=== PATIENT | female | born 1955 | race Caucasian/White ===

== ENCOUNTER 2017-08-13 13:35 | Outpatient (CLI) | payer OTHER ==
--- NOTE | 2017-08-14 12:21 | Mammography Report ---
DIGITAL SCREENING MAMMOGRAM: 08/13/2017 CLINICAL INDICATION: A 62-year-old for screening. COMPARISON: 07/2016, 04/2015, 03/2014, 01/2013, 12/2011, 10/2010, 09/2009 TECHNIQUE: Routine CC and MLO projections were obtained of the breasts as well as bilateral laterall y exaggerated craniocaudal views. FINDINGS: The breasts again demonstrate heterogeneously dense fibroglandular parenchyma bilaterally. Punctate, typically benign calcifications are present. No suspicious masses, clustered microcalcif ications, or regions of architectural distortion are identified. IMPRESSION: BENIGN FINDINGS. RECOMMENDATION: Routine annual screening unless otherwise clinically indicated. BIRADS CATEGORY 2 - BENIGN FINDINGS. STANDARD QUALIFYING STATEMENTS 1. This examination was reviewed with the aid of Computer-Aided Detection (CAD). 2. A negative or benign imaging report should not delay biopsy if clinically suspicious findings are present. Consider surgical consultation if warranted. More than 5% of cancers are not identified by i maging. 3. Dense breasts may obscure an underlying neoplasm. JOB #: [id number] EXT JOB #:[id number]
== END 2017-08-13 13:36 | disposition home or self-care (01) ==
LOC: DI.N 13:35
PROVIDERS: ATTEND Family Medicine
DX: Z12.31 Encounter for screening mammogram for malignant neoplasm of breast (principal)
CPT/HCPCS: 77067

== ENCOUNTER 2017-09-08 12:24 | Outpatient (CLI) | payer OTHER ==
[2017-09-08 12:40] LABS: BASOPHILS % (AUTO) 0.6 %; EOSINOPHILS # (AUTO) 0.2 10^3/uL (0.0-0.7); EOSINOPHILS % (AUTO) 4.8 %; HCT - HEMATOCRIT 35.1 % (37.0-47.0); HGB - HEMOGLOBIN 12.3 g/dL (12.0-16.0); LYMPHOCYTES # (AUTO) 0.8 10^3/uL (1.5-3.5); LYMPHOCYTES % (AUTO) 18.7 %; MEAN CORPUSCULAR HEMOGLOBIN 31.2 pg (27.0-31.0); MEAN CORPUSCULAR HGB CONC 35.1 g/dL (32.0-36.0); MEAN CORPUSCULAR VOLUME 88.8 fL (81.0-99.0); MEAN PLATELET VOLUME 6.9 fL (7.9-10.8); MONOCYTES # (AUTO) 0.4 10^3/uL (0.0-1.0); MONOCYTES % (AUTO) 8.2 %; NEUTROPHILS # (AUTO) 2.9 10^3/uL (1.5-6.6); NEUTROPHILS % (AUTO) 67.7 %; RED BLOOD COUNT 3.96 10^6/uL (4.20-5.40); RED CELL DISTRIBUTION WIDTH 13.1 % (12.0-15.0); UNCORRECTED WHITE BLOOD COUNT 4.3 x10^3/uL; WHITE BLOOD COUNT 4.3 x10^3/uL (4.8-10.8)
[2017-09-08 12:50] LABS: ALBUMIN/GLOBULIN RATIO 0.9 (1.0-2.2); BILIRUBIN,TOTAL 0.6 mg/dL (0.2-1.0); CALCIUM 9.3 mg/dL (8.5-10.3); POTASSIUM 4.2 mmol/L (3.5-5.0); TOTAL PROTEIN 8.9 g/dL (6.7-8.2)
== END 2017-09-08 12:25 | disposition home or self-care (01) ==
LOC: LAB 12:24
PROVIDERS: ATTEND Family Medicine
DX: R10.9 Unspecified abdominal pain (principal); I10 Essential (primary) hypertension; K74.3 Primary biliary cirrhosis
CPT/HCPCS: 36415; 80053; 85025

== ENCOUNTER 2018-07-12 14:46 | Outpatient (CLI) | payer OTHER ==
[2018-07-12 18:46] LABS: BILIRUBIN,URINE NEGATIVE (NEGATIVE); GLUCOSE, URINE (UA) NEGATIVE (NEGATIVE); KETONES,URINE (UA) NEGATIVE (NEGATIVE); LEUKOCYTE ESTERASE, URINE NEGATIVE (NEGATIVE); NITRITE,URINE NEGATIVE (NEGATIVE); OCCULT BLOOD,URINE TRACE-LYSE (NEGATIVE); PROTEIN,URINE NEGATIVE (NEGATIVE); UROBILINOGEN,URINE 0.2 (NORMAL) E.U./dL (NORMAL)
[2018-07-12 19:13] LABS: CLARITY,URINE CLEAR (CLEAR)
[2018-07-12 19:14] LABS: BACTERIA,URINE None Seen /HPF (None Seen); RBC,URINE 0-5 /HPF (0-5); SQUAMOUS EPITHELIAL CELL,UR MOD Squamous (<= Few)
== END 2018-07-12 14:47 | disposition home or self-care (01) ==
LOC: LAB.WCP 14:46
PROVIDERS: ATTEND Family Medicine
DX: R10.9 Unspecified abdominal pain (principal)
CPT/HCPCS: 81001; 87086

== ENCOUNTER 2018-07-12 16:20 | Outpatient (CLI) | payer OTHER ==
[2018-07-12] MEDS ORDERED: IOPAMIDOL-300 100 ML VIAL IVP ONE (18:31)
[2018-07-12] MEDS ORDERED: IOPAMIDOL-300 50 ML VIAL PO ONE (18:31)
--- NOTE | 2018-07-12 18:56 | CT Report ---
Reason: FLANK PAIN, LEFT Procedure Date: 07/12/2018 Accession Number: [id number] / [id number] Procedure: CT - Abdomen/Pelvis W/WO CPT Code: FULL RESULT: EXAM: CT ABDOMEN WITHOUT AND WITH CONTRAST EXAM DATE: 07/12/2018 06:23 PM. HISTORY: Left flank pain. COMPARISON: None. TECHNIQUE: Routine helical CT imaging was performed through the abdomen before and after administration of IV contrast: 100 cc of Isovue-300. Enteric contrast: Yes. Reconstruction: Coronal and sagittal. In accordance with CT protocol optimization, one or more of the following dose reduction techniques were utilized for this exam: automated exposure control, adjustment of mA and/or KV based on patient size, or use of iterative reconstructive technique. FINDINGS: Lung Bases: Unremarkable. Liver: Perihepatic clips. Unremarkable liver with patent portal vein and hepatic vein flow. Gallbladder/Bile Ducts: Cholecystectomy. No dilated ducts. Spleen: Enlarged. Pancreas: Normal. No masses or ductal obstruction. Adrenal Glands: Normal. Kidneys: Normal. No masses or hydronephrosis. Peritoneal Cavity/Bowel: Normal. No free fluid, free air or adenopathy. No masses or acute inflammatory process. The appendix is well visualized and normal. Vasculature: No aneurysms or other significant abnormality. Bones: No significant abnormality. Other: None. IMPRESSION: 1. Splenomegaly. 2. Cholecystectomy. 3. Unremarkable kidneys and ureters. RADIA
== END 2018-07-12 16:21 | disposition home or self-care (01) ==
LOC: DI 16:20
PROVIDERS: ATTEND Family Medicine
DX: R10.9 Unspecified abdominal pain (principal); R16.1 Splenomegaly, not elsewhere classified; Z90.49 Acquired absence of other specified parts of digestive tract
CPT/HCPCS: 74178; 81001; Q9967

== ENCOUNTER 2018-08-14 08:55 | Outpatient (CLI) | payer OTHER ==
--- NOTE | 2018-08-16 08:52 | Mammography Report ---
Reason: SCREENING MAMMO Procedure Date: 08/14/2018 Accession Number: [id number] / [id number] Procedure: MGN - Screening Mammo Dig Bilat CPT Code: FULL RESULT: EXAM: Screening Mammo Dig Bilat DATE: 08/14/2018 9:13 AM CLINICAL HISTORY: 63-year-old female presents for screening. TECHNIQUE: Bilateral CC, laterally exaggerated CC, MLO views were obtained. COMPARISON: 08/13/2017 08/10/2016 05/07/2015 04/09/2014. FINDINGS: The breasts demonstrate heterogeneously dense fibroglandular parenchyma bilaterally. No suspicious masses, clustered microcalcifications, or regions of architectural distortion are identified. IMPRESSION: Negative examination RECOMMENDATION: Routine annual screening unless otherwise clinically indicated. BIRADS CATEGORY 1: Negative STANDARD QUALIFYING STATEMENTS: 1. This examination was reviewed with the aid of Computer-Aided Detection (CAD). 2. A negative or benign imaging report should not delay biopsy if clinically suspicious findings are present. Consider surgical consultation if warranted. More than 5% of cancers are not identified by imaging. 3. Dense breasts may obscure an underlying neoplasm. 4. This examination was reviewed without the aid of 3D breast imaging (tomosynthesis).
== END 2018-08-14 08:56 | disposition home or self-care (01) ==
LOC: DI.N 08:55
DX: Z12.31 Encounter for screening mammogram for malignant neoplasm of breast (principal)
CPT/HCPCS: 77067

== ENCOUNTER 2018-08-28 08:07 | Outpatient (CLI) | payer OTHER | END 2018-08-28 08:08 | disposition home or self-care (01) | LOC: LAB 08:07 | PROVIDERS: ATTEND Internal Medicine Gastroenterology | DX: Z94.4 Liver transplant status (principal); Z79.899 Other long term (current) drug therapy; Z48.298 Encounter for aftercare following other organ transplant | CPT/HCPCS: 36415; 80048; 80061; 80076; 80197; 82575; 82977; 83721; 83735; 84100; 84156; 85025; 85610 ==

== ENCOUNTER 2018-08-30 08:10 | Outpatient (CLI) | payer OTHER ==
[2018-08-30 08:14] LABS: BASOPHILS % (AUTO) 1.1 %; EOSINOPHILS # (AUTO) 0.3 10^3/uL (0.0-0.7); HGB - HEMOGLOBIN 10.8 g/dL (12.0-16.0); LYMPHOCYTES # (AUTO) 0.5 10^3/uL (1.5-3.5); LYMPHOCYTES % (AUTO) 14.9 %; MEAN CORPUSCULAR HEMOGLOBIN 31.4 pg (27.0-31.0); MEAN CORPUSCULAR HGB CONC 34.7 g/dL (32.0-36.0); MEAN CORPUSCULAR VOLUME 90.6 fL (81.0-99.0); MEAN PLATELET VOLUME 6.7 fL (7.9-10.8); MONOCYTES # (AUTO) 0.3 10^3/uL (0.0-1.0); MONOCYTES % (AUTO) 10.1 %; NEUTROPHILS # (AUTO) 2.1 10^3/uL (1.5-6.6); NEUTROPHILS % (AUTO) 64.9 %; PLT - PLATELET COUNT 91 10^3/uL (130-450); RED BLOOD COUNT 3.44 10^6/uL (4.20-5.40); RED CELL DISTRIBUTION WIDTH 13.3 % (12.0-15.0); WHITE BLOOD COUNT 3.3 x10^3/uL (4.8-10.8)
[2018-08-30 08:25] LABS: COLLECTION TIME,URINE 1440 min; TOTAL VOLUME,URINE 1325 mL
[2018-08-30 08:30] LABS: INR 1.4 (0.8-1.2); PT - PROTHROMBIN TIME 15.1 secs (9.9-12.6)
[2018-08-30 08:32] LABS: ALBUMIN 3.8 g/dL (3.2-5.5); ALKALINE PHOSPHATASE 73 IU/L (42-121); ALT ALANINE AMINOTRANSFERASE 34 IU/L (10-60); AST ASPARTATE AMINOTRANSFERASE 39 IU/L (10-42); BILIRUBIN,DIRECT 0.1 mg/dL (0.1-0.5); BILIRUBIN,TOTAL 0.5 mg/dL (0.2-1.0); BUN - BLOOD UREA NITROGEN 16 mg/dL (6-20); CARBON DIOXIDE - CO2 25 mmol/L (21-32); CHLORIDE 105 mmol/L (101-111); CHOL/HDL RATIO 3.1 (<4.4); CHOLESTEROL 173 mg/dL; CREATININE 0.9 mg/dL (0.4-1.0); GAMMA GLUTAMYL TRANSPEPTIDASE 90 IU/L (8-38); GFR - MDRD 64 (>89); GLUCOSE 100 mg/dL (70-100); HDL CHOLESTEROL 56 mg/dL; LDL CHOLESTEROL,CALCULATED 105 mg/dL; LDL/HDL RATIO 1.9 (<4.4); MAGNESIUM 1.8 mg/dL (1.7-2.8); PHOSPHORUS 3.3 mg/dL (2.5-4.6); SODIUM 135 mmol/L (135-145); VLDL CHOLESTEROL 12 mg/dL
[2018-08-30 08:40] LABS: CREATININE CLEARANCE,URINE 76 mL/min (66-111); CREATININE,URINE 69.5 mg/dL
[2018-08-30 08:43] LABS: TOTAL PROTEIN,URINE RANDOM < 6 mg/dL
--- NOTE | 2018-08-30 09:44 | XRAY Report ---
Reason: S/P LIVER TRANSPLANT ANNUAL FOLLOW UP Procedure Date: 08/30/2018 Accession Number: [id number] / [id number] Procedure: XR - Chest 2 View X-Ray CPT Code: 26332 FULL RESULT: EXAM: CHEST RADIOGRAPHY EXAM DATE: 08/30/2018 08:18 AM. CLINICAL HISTORY: Status post liver transplant; annual follow up. COMPARISON: 05/14/2009 10:35 PM CHEST W/ 09/07/2016 2:05 PM. TECHNIQUE: 2 views. FINDINGS: Lungs/Pleura: No focal opacities evident. No pleural effusion. No pneumothorax. High lung volumes with mildly flattened diaphragms, unchanged. Mediastinum: Heart and mediastinal contours are unremarkable. Other: None. IMPRESSION: No acute cardiopulmonary abnormality. RADIA
== END 2018-08-30 08:11 | disposition home or self-care (01) ==
LOC: DI 08:10
PROVIDERS: ATTEND Internal Medicine
DX: Z48.23 Encounter for aftercare following liver transplant (principal); Z94.4 Liver transplant status; Z79.899 Other long term (current) drug therapy; Z48.298 Encounter for aftercare following other organ transplant
CPT/HCPCS: 36415; 71046; 80048; 80061; 80076; 80197; 82575; 82977; 83721; 83735; 84100; 84156; 85025; 85610

== ENCOUNTER 2019-03-16 08:00 | Outpatient (CLI) | payer OTHER ==
[2019-03-16 12:06] LABS: H. PYLORIS ANTIGEN STL NEGATIVE (Negative)
== END 2019-03-16 23:59 | disposition home or self-care (01) ==
LOC: LAB.R 08:00
PROVIDERS: ATTEND Family Medicine
DX: R19.7 Diarrhea, unspecified (principal)
CPT/HCPCS: 81599; 83630; 87045; 87046; 87177; 87209; 87329; 87338; 87493

== ENCOUNTER → 2019-03-18 | Outpatient (CLI) | payer OTHER | LOC: LAB.R 08:00 | PROVIDERS: ATTEND Family Medicine | DX: R19.7 Diarrhea, unspecified (principal) | CPT/HCPCS: 82270; 82274 ==

== ENCOUNTER 2019-08-18 10:09 | Outpatient (CLI) | payer OTHER ==
--- NOTE | 2019-08-18 12:31 | Mammography Report ---
Reason: ROUTINE MAMMO Procedure Date: 08/18/2019 Accession Number: [id number] / [id number] Procedure: MGN - Screening Mammo Dig Bilat CPT Code: Final Report FULL RESULT: EXAM: Screening Mammo Dig Bilat DATE: 08/18/2019 10:32 AM CLINICAL HISTORY: The patient is a 64 year-old asymptomatic female. No reported personal nor family history of breast cancer. TECHNIQUE: (B) - Bilateral CC and MLO views were obtained. COMPARISON: 08/14/2018, 08/13/2017, 08/10/2016, 05/07/2015, 04/09/2014 PARENCHYMAL PATTERN: (D) - The breasts demonstrate heterogeneously dense fibroglandular parenchyma bilaterally.This limits mammographic sensitivity. FINDINGS: The pattern of asymmetry is stable given positional variation. There are no suspicious masses, calcifications or areas of distortion. IMPRESSION: Negative examination. BI-RADS category 1. RECOMMENDATION: (ANNUAL) - Recommend routine annual screening mammography. BI-RADS CATEGORY: STANDARD QUALIFYING STATEMENTS: 1. This examination was not reviewed with the aid of Computer-Aided Detection (CAD). 2. A negative or benign imaging report should not preclude biopsy if clinically suspicious findings are present. 3. Dense breasts may obscure an underlying neoplasm.
== END 2019-08-18 10:10 | disposition home or self-care (01) ==
LOC: DI.N 10:09
DX: Z12.31 Encounter for screening mammogram for malignant neoplasm of breast (principal)
CPT/HCPCS: 77067

== ENCOUNTER 2019-08-19 08:07 | Outpatient (CLI) | payer OTHER ==
[2019-08-19 08:32] LABS: INR 1.3 (0.8-1.2); PT - PROTHROMBIN TIME 15.1 secs (9.9-12.6)
[2019-08-19 08:47] LABS: ALKALINE PHOSPHATASE 76 IU/L (42-121); ALT ALANINE AMINOTRANSFERASE 36 IU/L (10-60); AST ASPARTATE AMINOTRANSFERASE 40 IU/L (10-42); BILIRUBIN,DIRECT 0.1 mg/dL (0.1-0.5); BILIRUBIN,TOTAL 0.8 mg/dL (0.2-1.0); BUN - BLOOD UREA NITROGEN 18 mg/dL (6-20); CALCIUM 9.1 mg/dL (8.5-10.3); CARBON DIOXIDE - CO2 25 mmol/L (21-32); CHLORIDE 103 mmol/L (101-111); CHOL/HDL RATIO 2.9 (<4.4); CHOLESTEROL 167 mg/dL; CREATININE 1.1 mg/dL (0.4-1.0); GAMMA GLUTAMYL TRANSPEPTIDASE 102 IU/L (8-38); GFR - MDRD 50 (>89); GLUCOSE 104 mg/dL (70-100); HDL CHOLESTEROL 57 mg/dL; LDL CHOLESTEROL,CALCULATED 98 mg/dL; LDL/HDL RATIO 1.7 (<4.4); MAGNESIUM 1.8 mg/dL (1.7-2.8); PHOSPHORUS 3.7 mg/dL (2.5-4.6); SODIUM 137 mmol/L (135-145); VLDL CHOLESTEROL 12 mg/dL
[2019-08-19 08:54] LABS: BASOPHILS % (AUTO) 0.6 %; EOSINOPHILS # (AUTO) 0.2 10^3/uL (0.0-0.7); EOSINOPHILS % (AUTO) 6.8 %; HGB - HEMOGLOBIN 10.5 g/dL (12.0-16.0); LYMPHOCYTES # (AUTO) 0.6 10^3/uL (1.5-3.5); LYMPHOCYTES % (AUTO) 19.7 %; MEAN CORPUSCULAR HEMOGLOBIN 30.3 pg (27.0-31.0); MEAN CORPUSCULAR HGB CONC 32.7 g/dL (32.0-36.0); MEAN CORPUSCULAR VOLUME 92.8 fL (81.0-99.0); MONOCYTES # (AUTO) 0.3 10^3/uL (0.0-1.0); MONOCYTES % (AUTO) 9.4 %; NEUTROPHILS % (AUTO) 63.2 %; PLT - PLATELET COUNT 70 10^3/uL (130-450); RED BLOOD COUNT 3.46 10^6/uL (4.20-5.40); RED CELL DISTRIBUTION WIDTH 13.2 % (12.0-15.0); WHITE BLOOD COUNT 3.1 x10^3/uL (4.8-10.8)
[2019-08-19 09:27] LABS: CREATININE,URINE 95.4 mg/dL; TOTAL VOLUME 24HRS,URINE 1000 mL
[2019-08-19 10:36] LABS: TOTAL PROTEIN,URINE TIMED < 6 mg/dL
[2019-08-19 13:03] LABS: CREATININE CLEARANCE,URINE 171 mL/min (66-111)
[2019-08-19 13:30] LABS: TOTAL VOLUME,URINE 1000 mL
== END 2019-08-19 08:08 | disposition home or self-care (01) ==
LOC: LAB 08:07
PROVIDERS: ATTEND Internal Medicine Gastroenterology
DX: Z94.4 Liver transplant status (principal); Z79.899 Other long term (current) drug therapy; Z48.298 Encounter for aftercare following other organ transplant
CPT/HCPCS: 36415; 80048; 80061; 80076; 80197; 82575; 82977; 83721; 83735; 84100; 84156; 85025; 85610

== ENCOUNTER 2020-05-13 11:33 | Outpatient (CLI) | payer OTHER | END 2020-05-13 23:59 | disposition home or self-care (01) | LOC: LAB.R 11:33 | PROVIDERS: ATTEND Nurse Practitioner Family | DX: R31.9 Hematuria, unspecified (principal) | CPT/HCPCS: 87086 ==

== ENCOUNTER 2020-06-11 09:20 | Outpatient (CLI) | payer OTHER ==
--- NOTE | 2020-06-11 16:03 | XRAY Report ---
PROCEDURE: Ankle 3 View LT INDICATIONS: LEFT DISTAL FIBULA FRACTURE TECHNIQUE: 3 views of the ankle were acquired. COMPARISON: [facility] ankle x-ray 05/31/2020. FINDINGS: Bones: Several cortical step-off with associated linear lucency redemonstrated within the lateral mal leolus compatible with a nondisplaced fracture. Fracture line is less distinct compared to the prior study. No other fracture or dislocation. Ankle mortise is normally aligned. No suspicious bony lesio ns. Soft tissues: There is decreased soft tissue swelling over the lateral malleolus. No tibiotalar join t effusion. Achilles tendon appears normal. IMPRESSION: 1. Healing nondisplaced fracture of the lateral malleolus. Reviewed by: Obi De La Cruz MD on 06/11/2020 4:01 PM PDT Approved by: Obi De La Cruz MD on 06/11/2020 4:01 PM PDT Station ID: [id number]
--- NOTE | 2020-06-11 16:05 | XRAY Report ---
PROCEDURE: Foot 3 View LT INDICATIONS: LEFT FOOT PAIN TECHNIQUE: 3 views of the foot were acquired. COMPARISON: Concurrent x-ray of the ankle. [facility] foot x-ray 05/31/2020. FINDINGS: Bones: No fracture or dislocation within the foot. Nondisplaced fracture of the lateral malleolus is not well visualized on the current study. There is mild degeneration of the first metatarsophalangeal joint. Soft tissues: Mild soft tissue swelling is demonstrated medial to the first metatarsal head. IMPRESSION: 1. No fracture or dislocation in the foot. 2. Nondisplaced fracture of the lateral malleolus not well visualized on the current study. Reviewed by: Obi De La Cruz MD on 06/11/2020 4:04 PM PDT Approved by: Obi De La Cruz MD on 06/11/2020 4:04 PM PDT Station ID: [id number]
--- NOTE | 2020-06-11 16:33 | XRAY Report ---
PROCEDURE: Tib/Fib LT INDICATIONS: LEFT LEG PAIN TECHNIQUE: 2 views of the tibia and fibula were acquired. COMPARISON: [facility] Left ankle x-ray 05/31/2020. Concurrent x-ray of the left ankle. FINDINGS: Bones: No fractures or dislocations in the proximal tibia or fibula. Nondisplaced fracture of the d istal fibula is not well visualized on the current study. Soft tissues: No suspicious soft tissue calcifications or masses. IMPRESSION: 1. No fracture or dislocation in the proximal tibia or fibula. Reviewed by: Obi De La Cruz MD on 06/11/2020 4:31 PM PDT Approved by: Obi De La Cruz MD on 06/11/2020 4:31 PM PDT Station ID: [id number]
== END 2020-06-11 09:21 | disposition home or self-care (01) ==
LOC: DI.WCP 09:20
PROVIDERS: ATTEND Physician Assistant
DX: S82.65XA Nondisplaced fracture of lateral malleolus of left fibula, initial encounter for closed fracture (principal)

== ENCOUNTER 2020-07-24 00:12 | Outpatient (CLI) | payer OTHER | END 2020-07-24 00:13 | disposition short-term general hospital (02) | LOC: EMS 00:12 | PROVIDERS: ATTEND Surgery | DX: R42 Dizziness and giddiness (principal); R10.9 Unspecified abdominal pain; R11.2 Nausea with vomiting, unspecified | CPT/HCPCS: A0425; A0427 ==

== ENCOUNTER 2020-08-04 20:40 | Outpatient (CLI) | payer OTHER | END 2020-08-04 23:59 | disposition home or self-care (01) | LOC: LAB.R 20:40 | PROVIDERS: ATTEND Family Medicine | DX: R19.7 Diarrhea, unspecified (principal) | CPT/HCPCS: 81599; 83993; 87045; 87046; 87177; 87209; 87427; 87493 ==

== ENCOUNTER 2020-09-02 09:06 | Outpatient (CLI) | payer OTHER ==
--- NOTE | 2020-09-02 09:41 | XRAY Report ---
PROCEDURE: Foot 3 View LT INDICATIONS: FRACTURE OF LT GREAT TOE TECHNIQUE: 3 views of the foot were acquired. COMPARISON: None FINDINGS: Bones: No fractures or dislocations. No suspicious bony lesions. Soft tissues: No tibiotalar joint effusion. Achilles tendon appears normal. IMPRESSION: No fracture of the great toe is identified. There are mild degenerative changes of the le ft metatarsophalangeal joint. Reviewed by: Kirill Hartman on 09/02/2020 9:40 AM [facility] Approved by: Kirill Hartman on 09/02/2020 9:40 AM [facility] Station ID: [id number]
--- NOTE | 2020-09-02 09:44 | XRAY Report ---
PROCEDURE: Ankle 3 View LT INDICATIONS: LT ANKLE ORTHO FOLLOW UP TECHNIQUE: 3 views of the ankle were acquired. COMPARISON: None FINDINGS: Bones: No acute fractures or dislocations. Ankle mortise is normally aligned. No suspicious bony l esions. Soft tissues: No tibiotalar joint effusion. Achilles tendon appears normal. IMPRESSION: Healed fracture of the lateral malleolus is no longer visible. Reviewed by: Kirill Hartman on 09/02/2020 9:[address] [facility] Approved by: Kirill Hartman on 09/02/2020 9:[address] [facility] Station ID: [id number]
== END 2020-09-02 23:59 | disposition home or self-care (01) ==
LOC: DI.N 09:06
PROVIDERS: ATTEND Physician Assistant
DX: M19.072 Primary osteoarthritis, left ankle and foot (principal); S92.422S Displaced fracture of distal phalanx of left great toe, sequela

== ENCOUNTER 2020-09-14 08:50 | Outpatient (CLI) | payer OTHER | END 2020-09-14 08:51 | disposition home or self-care (01) | LOC: DI 08:50 | PROVIDERS: ATTEND Family Medicine | DX: R00.2 Palpitations (principal); I34.0 Nonrheumatic mitral (valve) insufficiency | CPT/HCPCS: 93306 ==

== ENCOUNTER 2020-09-15 09:22 | Outpatient (CLI) | payer OTHER ==
--- NOTE | 2020-09-16 11:45 | Mammography Report ---
BILATERAL DIGITAL SCREENING MAMMOGRAM 3D/2D: 09/15/2020 CLINICAL: Routine screening. Comparison is made to exams dated: 08/18/2019 mammogram, 08/14/2018 mammogram, and 08/13/2017 mammog [facility]. The tissue of both breasts is heterogeneously dense. This may lo wer the sensitivity of mammography. There is a developing new asymmetry in the left breast posterior depth central to the nipple seen on the craniocaudal view only. There is architectural distortion associated with the asymmetry. No other significant masses, calcifications, or other findings are seen in either breast. IMPRESSION: INCOMPLETE: NEEDS ADDITIONAL IMAGING EVALUATION The developing new asymmetry in the left breast is indeterminate. Additional views with possible ult rasound are recommended. This exam was interpreted at Station ID: [id number]. NOTE: For mammograms, a report in lay terms will be sent to the patient. Approximately 15% of breast malignancies will not be visualized mammographically. In the management of a palpable breast mass, a negative mammogram must not discourage biopsy of a clinically suspicious lesion. Electronically Signed By: Yasemin lopez/greg:09/15/2020 18:11:07 ACR BI-RADS Category 0: Incomplete 3340F PARENCHYMAL PATTERN: (D) - The breast(s) demonstrate(s) heterogeneously dense fibroglandular naima hernandez. BI-RADS CATEGORY: (0) - 0 Mammo and [place] [id number] Immediate follow-up LATERALITY: (B)
== END 2020-09-15 09:23 | disposition home or self-care (01) ==
LOC: DI.N 09:22
DX: Z12.31 Encounter for screening mammogram for malignant neoplasm of breast (principal); N64.89 Other specified disorders of breast
CPT/HCPCS: 77067

== ENCOUNTER 2020-09-27 07:59 | Outpatient (CLI) | payer OTHER ==
[2020-09-27 08:30] LABS: EOSINOPHILS # (AUTO) 0.2 10^3/uL (0.0-0.7); EOSINOPHILS % (AUTO) 7.9 %; HGB - HEMOGLOBIN 10.8 g/dL (12.0-16.0); LYMPHOCYTES # (AUTO) 0.4 10^3/uL (1.5-3.5); LYMPHOCYTES % (AUTO) 13.5 %; MEAN CORPUSCULAR HEMOGLOBIN 30.1 pg (27.0-31.0); MEAN CORPUSCULAR HGB CONC 33.2 g/dL (32.0-36.0); MEAN CORPUSCULAR VOLUME 90.5 fL (81.0-99.0); MEAN PLATELET VOLUME 9.6 fL (7.9-10.8); MONOCYTES # (AUTO) 0.2 10^3/uL (0.0-1.0); MONOCYTES % (AUTO) 7.6 %; NEUTROPHILS # (AUTO) 2.1 10^3/uL (1.5-6.6); PLT - PLATELET COUNT 65 10^3/uL (130-450); RED BLOOD COUNT 3.59 10^6/uL (4.20-5.40); RED CELL DISTRIBUTION WIDTH 14.3 % (12.0-15.0)
[2020-09-27 08:34] LABS: INR 1.5 (0.8-1.2); PT - PROTHROMBIN TIME 16.7 secs (9.9-12.6)
[2020-09-27 08:47] LABS: ALKALINE PHOSPHATASE 81 IU/L (42-121); ALT ALANINE AMINOTRANSFERASE 19 IU/L (10-60); AST ASPARTATE AMINOTRANSFERASE 31 IU/L (10-42); BILIRUBIN,DIRECT 0.1 mg/dL (0.1-0.5); BILIRUBIN,TOTAL 0.9 mg/dL (0.2-1.0); BUN - BLOOD UREA NITROGEN 15 mg/dL (6-20); CALCIUM 9.5 mg/dL (8.5-10.3); CARBON DIOXIDE - CO2 24 mmol/L (21-32); CHLORIDE 102 mmol/L (101-111); CHOLESTEROL 139 mg/dL; GAMMA GLUTAMYL TRANSPEPTIDASE 55 IU/L (8-38); GLUCOSE 110 mg/dL (70-100); HDL CHOLESTEROL 46 mg/dL; LDL CHOLESTEROL,CALCULATED 81 mg/dL; LDL/HDL RATIO 1.8 (<4.4); MAGNESIUM 1.9 mg/dL (1.7-2.8); PHOSPHORUS 3.9 mg/dL (2.5-4.6); SODIUM 138 mmol/L (135-145); TOTAL PROTEIN 8.1 g/dL (6.7-8.2); VLDL CHOLESTEROL 12 mg/dL
[2020-09-27 12:11] LABS: TOTAL VOLUME,URINE 1400 mL
[2020-09-27 12:22] LABS: CREATININE,URINE 58.8 mg/dL; TOTAL VOLUME 24HRS,URINE 1400 mL
[2020-09-27 12:59] LABS: CREATININE CLEARANCE,URINE 61 mL/min (66-111)
[2020-09-27 13:03] LABS: TOTAL PROTEIN,URINE TIMED < 6 mg/dL
== END 2020-09-27 08:00 | disposition home or self-care (01) ==
LOC: LAB 07:59
PROVIDERS: ATTEND Internal Medicine Gastroenterology
DX: Z94.4 Liver transplant status (principal); Z48.298 Encounter for aftercare following other organ transplant; Z79.899 Other long term (current) drug therapy
CPT/HCPCS: 36415; 80048; 80061; 80076; 80197; 82575; 82977; 83721; 83735; 84100; 84156; 85025; 85610

== ENCOUNTER 2020-10-06 13:59 | Outpatient (CLI) | payer OTHER ==
[2020-10-06 18:06] LABS: BASOPHILS % (AUTO) 0.7 %; EOSINOPHILS # (AUTO) 0.2 10^3/uL (0.0-0.7); EOSINOPHILS % (AUTO) 6.4 %; HGB - HEMOGLOBIN 10.1 g/dL (12.0-16.0); LYMPHOCYTES # (AUTO) 0.5 10^3/uL (1.5-3.5); LYMPHOCYTES % (AUTO) 18.1 %; MEAN CORPUSCULAR HEMOGLOBIN 31.6 pg (27.0-31.0); MEAN CORPUSCULAR HGB CONC 33.9 g/dL (32.0-36.0); MEAN CORPUSCULAR VOLUME 93.1 fL (81.0-99.0); MEAN PLATELET VOLUME 9.7 fL (7.9-10.8); MONOCYTES # (AUTO) 0.2 10^3/uL (0.0-1.0); MONOCYTES % (AUTO) 8.5 %; NEUTROPHILS # (AUTO) 1.9 10^3/uL (1.5-6.6); NEUTROPHILS % (AUTO) 66.3 %; PLT - PLATELET COUNT 81 10^3/uL (130-450); RED CELL DISTRIBUTION WIDTH 14.6 % (12.0-15.0); WHITE BLOOD COUNT 2.8 x10^3/uL (4.8-10.8)
[2020-10-06 18:30] LABS: ALBUMIN 4.1 g/dL (3.2-5.5); BILIRUBIN,TOTAL 0.8 mg/dL (0.2-1.0); CALCIUM 9.5 mg/dL (8.5-10.3); CREATININE 1.1 mg/dL (0.4-1.0); TOTAL PROTEIN 8.1 g/dL (6.7-8.2)
[2020-10-06 19:03] LABS: PLATELET ESTIMATE, MANUAL DECREASED (<130,000) (NORMAL); PLATELET MORPHOLOGY NORMAL APPEARANCE (NORMAL); RBC MORPHOLOGY (MULTIPLE) 1+ ANISOCYTOSIS (NORMAL)
== END 2020-10-06 23:59 | disposition home or self-care (01) ==
LOC: LAB.WCP 13:59
PROVIDERS: ATTEND Family Medicine
DX: K92.2 Gastrointestinal hemorrhage, unspecified (principal)
CPT/HCPCS: 36415; 80053; 82728; 83540; 84466; 85025

== ENCOUNTER 2020-10-25 10:52 | Outpatient (CLI) | payer OTHER ==
--- NOTE | 2020-10-26 08:27 | Mammography Report ---
UNILATERAL LEFT DIGITAL DIAGNOSTIC MAMMOGRAM 3D/2D: 10/25/2020 CLINICAL: Patient returns today to evaluate a focal asymmetry in the left breast. Comparison is made to exams dated: 09/15/2020 mammogram, 08/18/2019 mammogram, 08/14/2018 mammogram, 08/13/2017 mammogram, and 08/10/2016 mammogram - [facility]. The tissue of left b reast is heterogeneously dense. This may lower the sensitivity of mammography. There is an oval asymmetry with a microlobulated margin in the left breast posterior depth central to the nipple seen on the craniocaudal view only. This is less prominent. This lesion appears to loc matt to the superior breast on prior tomosynthesis images, but is not definitely seen on the prior M LO or today's LM view. No other significant masses or calcifications are seen in the breast. IMPRESSION: INCOMPLETE: NEEDS ADDITIONAL IMAGING EVALUATION The oval asymmetry in the left breast is indeterminate. An ultrasound is recommended. Targeted ultr asound is recommended for further evaluation, which will be performed on the same day immediately fol lowing this exam. This exam was interpreted at Station ID: [id number]. NOTE: For mammograms, a report in lay terms will be sent to the patient. Approximately 15% of breast malignancies will not be visualized mammographically. In the management of a palpable breast mass, a negative mammogram must not discourage biopsy of a clinically suspicious lesion. Electronically Signed By: Kaleb rosas/greg:10/25/2020 13:27:27 ACR BI-RADS Category 0: Incomplete 3340F PARENCHYMAL PATTERN: (D) - The breast(s) demonstrate(s) heterogeneously dense fibroglandular naima hernandez. BI-RADS CATEGORY: (0) - 0 Ultrasound [id number] Immediate follow-up LATERALITY: (L)
--- NOTE | 2020-10-26 08:27 | Ultrasound Report ---
LIMITED ULTRASOUND OF LEFT BREAST: 10/25/2020 CLINICAL: Patient returns for additional imaging over a suspected mass in the left breast. Comparison is made to exams dated: 10/25/2020 mammogram, 09/15/2020 mammogram, 08/18/2019 mammogram, 10/14/2017 mammogram, and 08/13/2017 mammogram - [facility]. Color flow ultrasound of the left breast 2 o'clock region was performed. Martines scale images of the r eal-time examination were reviewed. There is a 0.7 cm x 0.8 cm x 0.2 cm oval mass with a circumscribed margin in the left breast at 2 o'c lock posterior depth 4 cm from the nipple. This oval mass is hypoechoic. There also is a 0.4 cm x 0.4 cm x 0.4 cm cluster of oval cysts with a septated internal wall in the l eft breast at 2 o'clock middle depth 3 cm from the nipple. This cluster of oval cysts is hypoechoic. IMPRESSION: PROBABLY BENIGN The 0.7 cm x 0.8 cm x 0.2 cm oval mass in the left breast at 2 o'clock posterior depth has a differen tial diagnosis of a complicated cyst or a solid mass and is probably benign. The 0.4 cm x 0.4 cm x 0.4 cm cluster of oval cysts in the left breast at 2 o'clock middle depth is co nsistent with complicated cysts and is probably benign. A follow-up left mammogram and an ultrasound in 6 months is recommended to demonstrate stability. This exam was interpreted at Station ID: [id number]. Electronically Signed By: Kaleb rosas/greg:10/25/2020 13:30:32 Ultrasound BI-RADS: 3 Probably benign BI-RADS CATEGORY: (3) - 3 Mammo and [place] [id number] 6 month follow-up LATERALITY: (L)
== END 2020-10-25 10:53 | disposition home or self-care (01) ==
LOC: DI 10:52
PROVIDERS: ATTEND Family Medicine
DX: R92.8 Other abnormal and inconclusive findings on diagnostic imaging of breast (principal); N63.21 Unspecified lump in the left breast, upper outer quadrant; N60.12 Diffuse cystic mastopathy of left breast

== ENCOUNTER 2020-12-27 10:40 | Outpatient (CLI) | payer OTHER | END 2020-12-27 23:59 | disposition home or self-care (01) | LOC: LAB.N 10:40 | PROVIDERS: ATTEND Nurse Practitioner | DX: R50.9 Fever, unspecified (principal); Z20.822 Contact with and (suspected) exposure to COVID-19 ==

== ENCOUNTER 2021-07-21 09:54 | Outpatient (CLI) | payer OTHER ==
--- NOTE | 2021-07-22 09:11 | Mammography Report ---
BILATERAL DIGITAL DIAGNOSTIC MAMMOGRAM 3D/2D: 07/21/2021 CLINICAL: Short term follow up of the left breast, due for bilateral imaging. Comparison is made to exams dated: 10/25/2020 ultrasound, 10/25/2020 mammogram, 09/15/2020 mammogram, mammogram, 08/14/2018 mammogram, and 08/13/2017 mammogram - [facility]. T he tissue of both breasts is heterogeneously dense. This may lower the sensitivity of mammography. There is an asymmetry in the left breast posterior depth central to the nipple seen on the craniocaud al view only. This is less prominent. No other significant masses, calcifications, or other findings are seen in either breast. IMPRESSION: INCOMPLETE: NEEDS ADDITIONAL IMAGING EVALUATION The asymmetry in the left breast is indeterminate. A targeted ultrasound is recommended and will immediately follow. This exam was interpreted at Station ID: [id number]. NOTE: For mammograms, a report in lay terms will be sent to the patient. Approximately 15% of breast malignancies will not be visualized mammographically. In the management of a palpable breast mass, a negative mammogram must not discourage biopsy of a clinically suspicious lesion. Electronically Signed By: Tj Gusman M.D. slc/:07/21/2021 10:35:31 ACR BI-RADS Category 0: Incomplete 3340F PARENCHYMAL PATTERN: (D) - The breast(s) demonstrate(s) heterogeneously dense fibroglandular parmatthewy david. BI-RADS CATEGORY: (0) - 0 Ultrasound [id number] Immediate follow-up LATERALITY: (B)
--- NOTE | 2021-07-22 09:11 | Ultrasound Report ---
LIMITED ULTRASOUND OF LEFT BREAST: 07/21/2021 CLINICAL: Patient returns for a 6 month follow up of the left breast. Comparison is made to exams dated: 07/21/2021 mammogram, 10/25/2020 ultrasound, 10/25/2020 mammogram, mammogram, 08/18/2019 mammogram, and 08/14/2018 mammogram - [facility]. Color flow and real-time ultrasound of the left breast 2 o'clock region were performed. Martines scale i mages of the real-time examination were reviewed. There is a stable 0.8 cm x 0.7 cm x 0.2 cm wider than tall oval mass with a circumscribed margin in t he left breast at 2 o'clock posterior depth 4 cm from the nipple. This oval mass is hypoechoic. Col or flow imaging demonstrates that there is no vascularity present. This may correspond with the asymm etry seen on mammogram. There also is a 0.3 cm x 0.3 cm x 0.3 cm cluster of oval cysts with a septated internal wall in the l eft breast at 2 o'clock middle depth 3 cm from the nipple. This cluster of oval cysts is hypoechoic. These abnormalities are decreased in size. Color flow imaging demonstrates that there is no vascul arity present. IMPRESSION: PROBABLY BENIGN Stable 0.8 cm mass in the left breast at 2 o'clock posterior depth has a differential diagnosis of a complicated cyst or a fibroadenoma and is probably benign. The 0.3 cm cluster of oval cysts in the left breast at 2 o'clock middle depth is probably benign. A follow-up ultrasound in 6 months is recommended to demonstrate stability. This exam was interpreted at Station ID: [id number]. Electronically Signed By: Tj Gusman M.D. slc/:07/21/2021 11:29:55 Ultrasound BI-RADS: 3 Probably benign BI-RADS CATEGORY: (3) - 3 Ultrasound [id number] 6 month follow-up LATERALITY: (B)
== END 2021-07-21 09:55 | disposition home or self-care (01) ==
LOC: DI 09:54
PROVIDERS: ATTEND Surgery
DX: R92.8 Other abnormal and inconclusive findings on diagnostic imaging of breast (principal); N63.21 Unspecified lump in the left breast, upper outer quadrant; N60.02 Solitary cyst of left breast

== ENCOUNTER 2021-08-04 11:13 | Outpatient (CLI) | payer OTHER ==
--- NOTE | 2021-08-04 12:38 | XRAY Report ---
PROCEDURE: Shoulder 2 View BILAT INDICATIONS: BILATERAL SHOULDER PAIN TECHNIQUE: 2 views of the bilateral shoulders were acquired. COMPARISON: None. FINDINGS: BONES: No acute, displaced fracture or dislocation. The glenohumeral and acromioclavicular joint spac es are maintained. SOFT TISSUES: No focal abnormality or appreciable pneumothorax. IMPRESSION: 1.No acute osseous abnormality. Reviewed by: Fernando Stratton MD on 08/04/2021 12:36 PM [facility] Approved by: Fernando Stratton MD on 08/04/2021 12:36 PM [facility] Station ID: [id number]
== END 2021-08-04 11:14 | disposition home or self-care (01) ==
LOC: DI.N 11:13
PROVIDERS: ATTEND Family Medicine
DX: M25.511 Pain in right shoulder (principal); M25.512 Pain in left shoulder

== ENCOUNTER 2021-08-17 08:10 | Outpatient (CLI) | payer OTHER ==
--- NOTE | 2021-08-17 15:08 | DEXA Report ---
PROCEDURE: Dexa Spine and/or Hip INDICATIONS: S/O LIVER TRANSPLANT, POST MENOPAUSAL TECHNIQUE: Dual energy x-ray absorptiometry (DXA) was performed on a Servoy System. Regions measur ed are the AP Spine, femoral neck, and if needed forearm. COMPARISON: None. FINDINGS: Lumbar Spine: Bone Mineral Density 1.075 g/cm/cm,T score -0.9, normal Left Femoral Neck: Bone Mineral Density 0.650 g/cm/cm, T score -2.8, osteoporosis (T score greater or equal to -1.0: NORMAL) (T score from -1.1 to -2.4: OSTEOPENIA) (T score less than or equal to -2.5 to: OSTEOPOROSIS) Impression: Osteoporosis. Patients with diagnosis of osteoporosis or osteopenia should have regular bone mineral density assess ment. For those eligible for Medicare, routine testing is allowed once every 2 years. Testing frequ ency can be increased for patients who have rapidly progressing disease or for those who are receivin g medical therapy to restore bone mass. Reviewed by: Lee Mcmahon MD on 08/17/2021 3:07 PM PST Approved by: Lee Mcmahon MD on 08/17/2021 3:07 PM PST Station ID: [id number]
== END 2021-08-17 08:11 | disposition home or self-care (01) ==
LOC: DI 08:10
PROVIDERS: ATTEND Internal Medicine Transplant Hepatology
DX: M81.0 Age-related osteoporosis without current pathological fracture (principal); Z78.0 Asymptomatic menopausal state; Z94.4 Liver transplant status

== ENCOUNTER 2021-08-31 08:07 | Outpatient (CLI) | payer OTHER ==
[2021-08-31 09:03] LABS: BASOPHILS % (AUTO) 0.7 %; EOSINOPHILS # (AUTO) 0.2 10^3/uL (0.0-0.7); EOSINOPHILS % (AUTO) 5.9 %; HCT - HEMATOCRIT 31.1 % (37.0-47.0); LYMPHOCYTES # (AUTO) 0.3 10^3/uL (1.5-3.5); LYMPHOCYTES % (AUTO) 11.8 %; MEAN CORPUSCULAR HEMOGLOBIN 32.8 pg (27.0-31.0); MEAN CORPUSCULAR HGB CONC 35.4 g/dL (32.0-36.0); MEAN CORPUSCULAR VOLUME 92.8 fL (81.0-99.0); MONOCYTES # (AUTO) 0.4 10^3/uL (0.0-1.0); MONOCYTES % (AUTO) 13.9 %; NEUTROPHILS # (AUTO) 1.9 10^3/uL (1.5-6.6); NEUTROPHILS % (AUTO) 67.4 %; PLT - PLATELET COUNT 41 10^3/uL (130-450); RED BLOOD COUNT 3.35 10^6/uL (4.20-5.40); WHITE BLOOD COUNT 2.9 x10^3/uL (4.8-10.8)
[2021-08-31 09:08] LABS: SLIDE REVIEW? Indicated
[2021-08-31 09:15] LABS: ALBUMIN 3.9 g/dL (3.2-5.5); BILIRUBIN,DIRECT 0.1 mg/dL (0.1-0.5); CALCIUM 9.1 mg/dL (8.5-10.3); CREATININE 0.8 mg/dL (0.4-1.0); MAGNESIUM 1.9 mg/dL (1.7-2.8); PHOSPHORUS 4.1 mg/dL (2.5-4.6); POTASSIUM 4.6 mmol/L (3.5-5.0); TOTAL PROTEIN 7.4 g/dL (6.7-8.2)
[2021-08-31 09:26] LABS: INR 1.5 (0.8-1.2); PT - PROTHROMBIN TIME 16.9 secs (9.9-12.6)
[2021-08-31 10:07] LABS: CREATININE 24 HOUR,URINE 818 mg/24h (600-1800); CREATININE,URINE 65.4 mg/dL; TOTAL VOLUME 24HRS,URINE 1250 mL
[2021-08-31 10:26] LABS: TOTAL PROTEIN,URINE TIMED < 6 mg/dL
[2021-08-31 11:06] LABS: PLATELET ESTIMATE, MANUAL DECREASED (<130,000) (NORMAL); PLATELET MORPHOLOGY NORMAL APPEARANCE (NORMAL); RBC MORPHOLOGY (MULTIPLE) NORMAL APPEARANCE (NORMAL); WBC MORPHOLOGY (MULTIPLE) NORMAL APPEARANCE (NORMAL)
== END 2021-08-31 08:08 | disposition home or self-care (01) ==
LOC: LAB 08:07
PROVIDERS: ATTEND Internal Medicine Transplant Hepatology
DX: Z94.4 Liver transplant status (principal)
CPT/HCPCS: 36415; 80048; 80076; 80197; 82570; 82977; 83735; 84100; 84156; 85025; 85610

== ENCOUNTER 2021-08-31 10:20 | Outpatient (CLI) | payer OTHER ==
--- NOTE | 2021-08-31 10:49 | XRAY Report ---
PROCEDURE: Chest 2 View X-Ray INDICATIONS: S/P LIVER TRANSPLANT TECHNIQUE: 2 view(s) of the chest. COMPARISON: 08/30/2018, 09/07/2016. FINDINGS: Surgical changes and devices: Numerous surgical clips are seen in the epigastric region and right upp er quadrant abdomen. Lungs and pleura: No pleural effusions or pneumothorax. Lungs are clear. Mediastinum: Mediastinal contours are normal. Heart size is normal. Bones and chest wall: No suspicious bony abnormalities. Soft tissues appear unremarkable. IMPRESSION: No acute cardiopulmonary pathology. Reviewed by: Fritz Lawton MD on 08/31/2021 10:47 AM [facility] Approved by: Fritz Lawton MD on 08/31/2021 10:47 AM [facility] Station ID: [id number]
== END 2021-08-31 23:59 | disposition home or self-care (01) ==
LOC: DI 10:20
PROVIDERS: ATTEND Internal Medicine Transplant Hepatology
DX: Z94.4 Liver transplant status (principal)

== ENCOUNTER 2021-09-19 10:11 | Outpatient (CLI) | payer OTHER | END 2021-09-19 10:12 | disposition home or self-care (01) | LOC: LAB 10:11 | PROVIDERS: ATTEND Family Medicine | DX: Z00.00 Encounter for general adult medical examination without abnormal findings (principal); Z20.822 Contact with and (suspected) exposure to COVID-19 ==

== ENCOUNTER 2022-07-20 09:24 | Outpatient (CLI) | payer MEDICARE ==
--- NOTE | 2022-07-21 10:19 | Mammography Report ---
BILATERAL DIGITAL SCREENING MAMMOGRAM 3D/2D: 07/20/2022 CLINICAL: Routine screening. Comparison is made to exams dated: 06/28/2022 ultrasound, 07/21/2021 ultrasound, 07/21/2021 mammogram , 10/25/2020 ultrasound, 10/25/2020 mammogram, and 09/15/2020 mammogram - [facility]. Both breasts are heterogeneously dense, which may obscure small masses (category c / 51-75% glandular tissue). No significant masses, calcifications, or other findings are seen in either breast. There has been no significant interval change. IMPRESSION: NEGATIVE There is no mammographic evidence of malignancy. A 1 year screening mammogram is recommended. Future imaging is recommended as follows: 06/29/2023 screening mammogram. Based on the Tyrer Cuzick model (a risk assessment model) the patients lifetime risk is 9.7% and her 10 year risk is 4.7%. According to the ACR, ACS, and NCCN guidelines, an annual breast MRI exam carina g with mammogram is recommended if the patients lifetime risk is 20% or greater. This exam was interpreted at Station ID: [id number]. NOTE: For mammograms, a report in lay terms will be sent to the patient. Approximately 15% of breast malignancies will not be visualized mammographically. In the management of a palpable breast mass, a negative mammogram must not discourage biopsy of a clinically suspicious lesion. Electronically Signed By: Aric Tang M.D. aty/penrad:07/20/2022 21:39:35 ACR BI-RADS Category 1: Negative 3341F PARENCHYMAL PATTERN: (D) - The breast(s) demonstrate(s) heterogeneously dense fibroglandular naima hernandez. BI-RADS CATEGORY: (1) - 1 RECOMMENDATION: (ANNUAL) - Recommend routine annual screening mammography. [id number] 1 year screening LATERALITY: (B)
== END 2022-07-20 09:25 | disposition home or self-care (01) ==
LOC: DI.N 09:24
DX: Z12.31 Encounter for screening mammogram for malignant neoplasm of breast (principal)

== ENCOUNTER 2022-09-01 08:04 | Outpatient (CLI) | payer MEDICARE ==
[2022-09-01 08:15] LABS: BASOPHILS % (AUTO) 0.4 %; EOSINOPHILS % (AUTO) 5.4 %; HCT - HEMATOCRIT 32.2 % (37.0-47.0); LYMPHOCYTES % (AUTO) 15.4 %; MEAN CORPUSCULAR HEMOGLOBIN 31.7 pg (27.0-31.0); MEAN CORPUSCULAR HGB CONC 34.2 g/dL (32.0-36.0); MEAN CORPUSCULAR VOLUME 92.8 fL (81.0-99.0); MEAN PLATELET VOLUME 8.9 fL (7.9-10.8); MONOCYTES % (AUTO) 7.9 %; NEUTROPHILS % (AUTO) 70.5 %; PLT - PLATELET COUNT 51 10^3/uL (130-450); RED BLOOD COUNT 3.47 10^6/uL (4.20-5.40); RED CELL DISTRIBUTION WIDTH 13.2 % (12.0-15.0); WHITE BLOOD COUNT 2.4 x10^3/uL (4.8-10.8)
[2022-09-01 08:28] LABS: ABNORMAL LYMPHS % (MANUAL) 0 %; INR 1.5 (0.8-1.2); PT - PROTHROMBIN TIME 16.5 secs (9.9-12.6)
[2022-09-01 08:33] LABS: ALBUMIN 3.8 g/dL (3.2-5.5); BILIRUBIN,DIRECT 0.2 mg/dL (0.1-0.5); CALCIUM 9.2 mg/dL (8.5-10.3); MAGNESIUM 1.7 mg/dL (1.7-2.8); PHOSPHORUS 4.1 mg/dL (2.5-4.6); POTASSIUM 3.9 mmol/L (3.5-5.0); TOTAL PROTEIN 7.9 g/dL (6.7-8.2)
[2022-09-01 09:00] LABS: CREATININE 24 HOUR,URINE 778 mg/24h (600-1800); CREATININE,URINE 55.6 mg/dL; TOTAL VOLUME 24HRS,URINE 1400 mL
[2022-09-01 09:35] LABS: BAND NEUTROPHILS % (MANUAL) 3 %; EOSINOPHILS # (MANUAL) 0.1 10^3/uL (0-0.7); LYMPHOCYTES # (MANUAL) 0.5 10^3/uL (1.5-3.5); LYMPHOCYTES % (MANUAL) 16 %; MONOCYTES # (MANUAL) 0.2 10^3/uL (0.0-1.0); NEUTROPHILS # (MANUAL) 1.6 10^3/uL (1.5-6.6); REACTIVE LYMPHS % (MANUAL) 4 %
[2022-09-01 09:36] LABS: DIFFERENTIAL COMMENT MANUAL DIFFERENTIAL
[2022-09-01 09:53] LABS: TOTAL PROTEIN,URINE TIMED < 6 mg/dL
== END 2022-09-01 08:05 | disposition home or self-care (01) ==
LOC: LAB 08:04
PROVIDERS: ATTEND Internal Medicine Gastroenterology
DX: Z79.899 Other long term (current) drug therapy (principal); Z94.4 Liver transplant status; Z48.298 Encounter for aftercare following other organ transplant
CPT/HCPCS: 36415; 80048; 80076; 80197; 82570; 82977; 83735; 84100; 84156; 85025; 85610

== ENCOUNTER 2022-11-08 14:50 | Outpatient (CLI) | payer MEDICARE | END 2022-11-08 23:59 | disposition home or self-care (01) | LOC: LAB.N 14:50 | PROVIDERS: ATTEND Registered Nurse | DX: R30.0 Dysuria (principal) | CPT/HCPCS: 87086 ==

== ENCOUNTER 2022-11-16 08:18 | Outpatient (CLI) | payer MEDICARE ==
--- NOTE | 2022-11-16 16:12 | CT Report ---
PROCEDURE: ABDOMEN/PELVIS WO INDICATIONS: DYSURIA, LUQ ABD PAIN TECHNIQUE: Noncontrast 5 mm thick sections acquired from the diaphragms to the symphysis. 5 mm coronal and sagi ttal reformats were then performed. For radiation dose reduction, the following was used: automated exposure control, adjustment of mA and/or kV according to patient size. COMPARISON: None available. FINDINGS: Image quality: Excellent. ABDOMEN: Lung bases: No pleural effusion. Mild right pleural thickening or atelectasis. Solid organs: Liver appears somewhat heterogeneous. Clips in the upper abdomen. History of liver maldonado splant 2004. Gallbladder is absent. Pancreas is normal in contours. Splenomegaly measuring 19.3 cm i n craniocaudal dimension, (03/15). No adrenal nodules. Kidneys are normal in size, without hydronephr osis or nephrolithiasis. Peritoneum and bowel: Unenhanced bowel loops demonstrate normal wall thickness and caliber. No free fluid or air. Nodes and vessels: No definite enlarged lymph nodes. Mesenteric vasculature is prominent. Aorta and i nferior vena cava are normal in caliber. Miscellaneous: No ventral hernias. PELVIS: Genitourinary: Bladder is not distended. No stones. Anteverted uterus. Miscellaneous: No inguinal hernias or adenopathy. Bones: No suspicious bony lesions. No vertebral body compression fractures. IMPRESSION: 1. No kidney stones. No hydronephrosis. 2. No small bowel obstruction. No ascites. 3. Splenomegaly. Prominent mesenteric vasculature. Reviewed by: Tj Gusman MD on 11/16/2022 4:11 PM PST Approved by: Tj Gusman MD on 11/16/2022 4:11 PM PST Station ID: [id number]
== END 2022-11-16 08:19 | disposition home or self-care (01) ==
LOC: DI 08:18
PROVIDERS: ATTEND Registered Nurse
DX: R30.0 Dysuria (principal); R10.12 Left upper quadrant pain; R16.1 Splenomegaly, not elsewhere classified; Z94.4 Liver transplant status
CPT/HCPCS: 81001; 81003; 87077; 87086; 87181

== ENCOUNTER 2022-11-16 16:04 | Outpatient (CLI) | payer MEDICARE ==
[2022-11-16 17:47] LABS: BILIRUBIN,URINE NEGATIVE (NEGATIVE); GLUCOSE, URINE (UA) NEGATIVE (NEGATIVE); KETONES,URINE (UA) NEGATIVE (NEGATIVE); LEUKOCYTE ESTERASE, URINE SMALL (NEGATIVE); NITRITE,URINE NEGATIVE (NEGATIVE); OCCULT BLOOD,URINE LARGE (NEGATIVE); PH,URINE 6.5 PH (5.0-7.5); PROTEIN,URINE NEGATIVE (NEGATIVE); UROBILINOGEN,URINE 0.2 (NORMAL) E.U./dL (NORMAL)
[2022-11-16 18:01] LABS: CLARITY,URINE HAZY (CLEAR); WBC,URINE >25 /HPF (0-5)
[2022-11-16 18:02] LABS: BACTERIA,URINE Few /HPF (None Seen); SQUAMOUS EPITHELIAL CELL,UR FEW Squamous (<= Few)
== END 2022-11-16 16:05 | disposition home or self-care (01) ==
LOC: LAB.N 16:04
PROVIDERS: ATTEND Internal Medicine Infectious Disease
DX: R30.0 Dysuria (principal); Z94.4 Liver transplant status
CPT/HCPCS: 81001; 81003; 87077; 87086; 87181

== ENCOUNTER 2022-12-08 12:22 | Outpatient (CLI) | payer MEDICARE ==
[2022-12-08 18:51] LABS: BILIRUBIN,URINE NEGATIVE (NEGATIVE); GLUCOSE, URINE (UA) NEGATIVE (NEGATIVE); KETONES,URINE (UA) NEGATIVE (NEGATIVE); LEUKOCYTE ESTERASE, URINE MODERATE (NEGATIVE); NITRITE,URINE NEGATIVE (NEGATIVE); OCCULT BLOOD,URINE TRACE-INTA (NEGATIVE); PROTEIN,URINE NEGATIVE (NEGATIVE); UROBILINOGEN,URINE 0.2 (NORMAL) E.U./dL (NORMAL)
[2022-12-08 18:53] LABS: CLARITY,URINE HAZY (CLEAR)
[2022-12-08 19:38] LABS: BACTERIA,URINE Few /HPF (None Seen); EPITHELIAL CELLS,UR FEW Transitional /HPF (<= Few); RBC,URINE 0-5 /HPF (0-5); SQUAMOUS EPITHELIAL CELL,UR RARE Squamous (<= Few)
[2022-12-09 00:25] LABS: BACTERIAL VAGINOSIS DNA NEGATIVE (NEGATIVE); CANDIDA GLABRATA DNA NEGATIVE (NEGATIVE); CANDIDA GROUP DNA NEGATIVE (NEGATIVE); CANDIDA KRUSEI DNA NEGATIVE (NEGATIVE); TRICHOMONAS VAGINALIS DNA NEGATIVE (NEGATIVE)
== END 2022-12-08 23:59 | disposition home or self-care (01) ==
LOC: LAB.N 12:22
PROVIDERS: ATTEND Physician Assistant
DX: R30.0 Dysuria (principal); N89.8 Other specified noninflammatory disorders of vagina
CPT/HCPCS: 81001; 81514; 87086

== ENCOUNTER 2023-07-02 09:28 | Outpatient (CLI) | payer MEDICARE ==
--- NOTE | 2023-07-03 15:49 | Mammography Report ---
BILATERAL DIGITAL SCREENING MAMMOGRAM 3D/2D: 07/02/2023 CLINICAL: Routine screening. Comparison is made to exams dated: 07/20/2022 mammogram, 06/28/2022 ultrasound, 07/21/2021 ultrasound , 07/21/2021 mammogram, 10/25/2020 ultrasound, and 10/25/2020 mammogram - [facility]. Both breasts are heterogeneously dense, which may obscure small masses (category c / 51-75% glandular tissue). No significant masses, calcifications, or other findings are seen in either breast. There has been no significant interval change. IMPRESSION: NEGATIVE There is no mammographic evidence of malignancy. A 1 year screening mammogram is recommended. Based on the Tyrer Cuzick model (a risk assessment model) the patients lifetime risk is 9.3% and her 10 year risk is 4.7%. According to the ACR, ACS, and NCCN guidelines, an annual breast MRI exam carina g with mammogram is recommended if the patients lifetime risk is 20% or greater. This exam was interpreted at Station ID: [id number]. NOTE: For mammograms, a report in lay terms will be sent to the patient. Approximately 15% of breast malignancies will not be visualized mammographically. In the management of a palpable breast mass, a negative mammogram must not discourage biopsy of a clinically suspicious lesion. Electronically Signed By: Yasemin lopez/greg:07/02/2023 17:22:21 letter sent: No_Letter ACR BI-RADS Category 1: Negative 3341F PARENCHYMAL PATTERN: (D) - The breast(s) demonstrate(s) heterogeneously dense fibroglandular naima hernandez. BI-RADS CATEGORY: (1) - 1 Mammogram [id number] 1 year screening LATERALITY: (B)
== END 2023-07-02 09:29 | disposition home or self-care (01) ==
LOC: DI.N 09:28
DX: Z12.31 Encounter for screening mammogram for malignant neoplasm of breast (principal); R92.333 Mammographic heterogeneous density, bilateral breasts

== ENCOUNTER 2023-07-05 12:45 | Outpatient (CLI) | payer MEDICARE ==
[2023-07-05 17:46] LABS: BASOPHILS % (AUTO) 0.9 %; EOSINOPHILS % (AUTO) 6.6 %; HCT - HEMATOCRIT 27.9 % (37.0-47.0); HGB - HEMOGLOBIN 9.4 g/dL (12.0-16.0); LYMPHOCYTES % (AUTO) 14.6 %; MEAN CORPUSCULAR HGB CONC 33.7 g/dL (32.0-36.0); MEAN CORPUSCULAR VOLUME 94.9 fL (81.0-99.0); MEAN PLATELET VOLUME 10.2 fL (7.9-10.8); MONOCYTES % (AUTO) 11.5 %; NEUTROPHILS % (AUTO) 66.4 %; PLT - PLATELET COUNT 44 10^3/uL (130-450); RED BLOOD COUNT 2.94 10^6/uL (4.20-5.40); RED CELL DISTRIBUTION WIDTH 14.3 % (12.0-15.0); WHITE BLOOD COUNT 2.3 x10^3/uL (4.8-10.8)
[2023-07-05 17:51] LABS: ABNORMAL LYMPHS % (MANUAL) 0 %; BAND NEUTROPHILS % (MANUAL) 0 %
[2023-07-05 18:14] LABS: ALBUMIN/GLOBULIN RATIO 1.4 (1.0-2.2); BASOPHILS % (MANUAL) 2 %; BILIRUBIN,TOTAL 0.7 mg/dL (0.2-1.0); CALCIUM 9.2 mg/dL (8.5-10.3); EOSINOPHILS # (MANUAL) 0.3 10^3/uL (0-0.7); LYMPHOCYTES # (MANUAL) 0.4 10^3/uL (1.5-3.5); LYMPHOCYTES % (MANUAL) 16 %; MONOCYTES # (MANUAL) 0.3 10^3/uL (0.0-1.0); NEUTROPHILS # (MANUAL) 1.4 10^3/uL (1.5-6.6); TOTAL PROTEIN 6.9 g/dL (6.4-8.9)
[2023-07-05 18:16] LABS: DIFFERENTIAL COMMENT MANUAL DIFFERENTIAL; PLATELET ESTIMATE, MANUAL DECREASED (<130,000) (NORMAL); PLATELET MORPHOLOGY NORMAL APPEARANCE (NORMAL); RBC MORPHOLOGY (MULTIPLE) NORMAL APPEARANCE (NORMAL)
[2023-07-05 18:20] LABS: FERRITIN 124.3 ng/mL (11.0-306.8)
== END 2023-07-05 13:00 | disposition home or self-care (01) ==
LOC: LAB.N 12:45
PROVIDERS: ATTEND Nurse Practitioner
DX: R53.83 Other fatigue (principal)
CPT/HCPCS: 36415; 80053; 82728; 83540; 84466; 85025

== ENCOUNTER 2023-08-13 12:45 | Outpatient (CLI) | payer MEDICARE ==
[2023-08-13 18:26] LABS: BASOPHILS % (AUTO) 1.1 %; EOSINOPHILS % (AUTO) 5.1 %; HCT - HEMATOCRIT 29.8 % (37.0-47.0); HGB - HEMOGLOBIN 9.8 g/dL (12.0-16.0); LYMPHOCYTES % (AUTO) 13.6 %; MEAN CORPUSCULAR HEMOGLOBIN 31.5 pg (27.0-31.0); MEAN CORPUSCULAR HGB CONC 32.9 g/dL (32.0-36.0); MEAN CORPUSCULAR VOLUME 95.8 fL (81.0-99.0); MEAN PLATELET VOLUME 9.8 fL (7.9-10.8); MONOCYTES % (AUTO) 10.7 %; NEUTROPHILS % (AUTO) 69.5 %; PLT - PLATELET COUNT 44 10^3/uL (130-450); RED BLOOD COUNT 3.11 10^6/uL (4.20-5.40); RED CELL DISTRIBUTION WIDTH 13.5 % (12.0-15.0)
[2023-08-13 18:44] LABS: ALBUMIN/GLOBULIN RATIO 1.4 (1.0-2.2); BILIRUBIN,TOTAL 0.5 mg/dL (0.2-1.0); CALCIUM 9.1 mg/dL (8.5-10.3); POTASSIUM 4.1 mmol/L (3.5-4.5); TOTAL PROTEIN 6.8 g/dL (6.4-8.9)
[2023-08-13 18:55] LABS: THYROID STIMULATING HORMONE 0.95 uIU/mL (0.34-5.60)
[2023-08-13 19:04] LABS: WHITE BLOOD COUNT 1.8 x10^3/uL (4.8-10.8)
[2023-08-13 19:06] LABS: ABNORMAL LYMPHS % (MANUAL) 0 %; BAND NEUTROPHILS % (MANUAL) 0 %
[2023-08-13 19:32] LABS: EOSINOPHILS # (MANUAL) 0.1 10^3/uL (0-0.7); LYMPHOCYTES # (MANUAL) 0.3 10^3/uL (1.5-3.5); LYMPHOCYTES % (MANUAL) 17 %; MONOCYTES # (MANUAL) 0.1 10^3/uL (0.0-1.0); NEUTROPHILS # (MANUAL) 1.2 10^3/uL (1.5-6.6)
[2023-08-13 19:35] LABS: DIFFERENTIAL COMMENT MANUAL DIFFERENTIAL; PLATELET ESTIMATE, MANUAL DECREASED (<130,000) (NORMAL); PLATELET MORPHOLOGY NORMAL APPEARANCE (NORMAL); RBC MORPHOLOGY (MULTIPLE) NORMAL APPEARANCE (NORMAL)
== END 2023-08-13 13:00 | disposition home or self-care (01) ==
LOC: LAB.N 12:45
PROVIDERS: ATTEND Physician Assistant Medical
DX: R19.7 Diarrhea, unspecified (principal); Z20.822 Contact with and (suspected) exposure to COVID-19
CPT/HCPCS: 36415; 80053; 83690; 84443; 85025; 87493

== ENCOUNTER 2023-08-20 07:52 | Outpatient (CLI) | payer MEDICARE ==
[2023-08-20 08:19] LABS: BASOPHILS % (AUTO) 0.8 %; EOSINOPHILS # (AUTO) 0.1 10^3/uL (0.0-0.7); EOSINOPHILS % (AUTO) 3.8 %; HCT - HEMATOCRIT 31.3 % (37.0-47.0); HGB - HEMOGLOBIN 10.4 g/dL (12.0-16.0); LYMPHOCYTES # (AUTO) 0.2 10^3/uL (1.5-3.5); LYMPHOCYTES % (AUTO) 7.9 %; MEAN CORPUSCULAR HEMOGLOBIN 31.6 pg (27.0-31.0); MEAN CORPUSCULAR HGB CONC 33.2 g/dL (32.0-36.0); MEAN CORPUSCULAR VOLUME 95.1 fL (81.0-99.0); MEAN PLATELET VOLUME 9.7 fL (7.9-10.8); MONOCYTES # (AUTO) 0.2 10^3/uL (0.0-1.0); MONOCYTES % (AUTO) 5.7 %; NEUTROPHILS # (AUTO) 2.2 10^3/uL (1.5-6.6); NEUTROPHILS % (AUTO) 81.4 %; PLT - PLATELET COUNT 42 10^3/uL (130-450); RED BLOOD COUNT 3.29 10^6/uL (4.20-5.40); RED CELL DISTRIBUTION WIDTH 13.2 % (12.0-15.0); WHITE BLOOD COUNT 2.7 x10^3/uL (4.8-10.8)
[2023-08-20 08:28] LABS: INR 1.7 (0.8-1.2); PT - PROTHROMBIN TIME 18.2 secs (9.9-12.6); SLIDE REVIEW? Indicated
[2023-08-20 08:50] LABS: PLATELET ESTIMATE, MANUAL DECREASED (<130,000) (NORMAL); PLATELET MORPHOLOGY NORMAL APPEARANCE (NORMAL); RBC MORPHOLOGY (MULTIPLE) NORMAL APPEARANCE (NORMAL); WBC MORPHOLOGY (MULTIPLE) NORMAL APPEARANCE (NORMAL)
[2023-08-20 09:00] LABS: ALBUMIN 4.1 g/dL (3.2-5.5); ALKALINE PHOSPHATASE 74 IU/L (42-121); ALT ALANINE AMINOTRANSFERASE 20 IU/L (10-60); AST ASPARTATE AMINOTRANSFERASE 28 IU/L (10-42); BILIRUBIN,DIRECT 0.13 mg/dL (0.03-0.18); BILIRUBIN,TOTAL 0.8 mg/dL (0.2-1.0); BUN - BLOOD UREA NITROGEN 15 mg/dL (6-20); CALCIUM 9.4 mg/dL (8.5-10.3); CARBON DIOXIDE - CO2 25 mmol/L (21-32); CHLORIDE 110 mmol/L (101-111); CHOL/HDL RATIO 2.9 (<4.4); CHOLESTEROL 142 mg/dL; CREATININE 1.3 mg/dL (0.6-1.3); GAMMA GLUTAMYL TRANSPEPTIDASE 74 IU/L (9-64); GFR - MDRD 41 (>89); GLUCOSE 96 mg/dL (74-104); HDL CHOLESTEROL 49 mg/dL; LDL CHOLESTEROL,CALCULATED 79 mg/dL; LDL/HDL RATIO 1.6 (<4.4); MAGNESIUM 1.5 mg/dL (1.7-2.3); PHOSPHORUS 3.5 mg/dL (2.5-5.0); POTASSIUM 4.2 mmol/L (3.5-4.5); SODIUM 140 mmol/L (135-145); TOTAL PROTEIN 7.1 g/dL (6.4-8.9); TRIGLYCERIDES 71 mg/dL (48-352); VLDL CHOLESTEROL 14 mg/dL
[2023-08-20 09:01] LABS: CREATININE,URINE 195.1 mg/dL; PROTEIN/CREATININE RATIO,URINE 0.1 (<=0.2)
== END 2023-08-20 07:53 | disposition home or self-care (01) ==
LOC: LAB 07:52
PROVIDERS: ATTEND Internal Medicine Gastroenterology
DX: Z48.298 Encounter for aftercare following other organ transplant (principal); Z94.4 Liver transplant status; Z79.899 Other long term (current) drug therapy
CPT/HCPCS: 36415; 80048; 80061; 80076; 80197; 82570; 82977; 83721; 83735; 84100; 84156; 85025; 85610

== ENCOUNTER 2023-08-22 08:00 | Outpatient (CLI) | payer MEDICARE ==
[2023-08-22 17:56] LABS: FECAL OCCULT BLOOD (FIT) POSITIVE (NEGATIVE)
[2023-08-24 14:08] LABS: GIARDIA LAMBLIA AG EIA Negative (Negative)
== END 2023-08-22 23:59 | disposition home or self-care (01) ==
LOC: LAB.R 08:00
PROVIDERS: ATTEND Family Medicine
DX: R19.7 Diarrhea, unspecified (principal)
CPT/HCPCS: 82274; 83993; 87045; 87046; 87177; 87209; 87329; 87427; 87493

== ENCOUNTER 2023-09-07 09:51 | Outpatient (CLI) | payer MEDICARE | END 2023-09-07 09:52 | disposition home or self-care (01) | LOC: LAB.R 09:51 | PROVIDERS: ATTEND Internal Medicine Gastroenterology | DX: K52.9 Noninfective gastroenteritis and colitis, unspecified (principal) | CPT/HCPCS: 81599; 82653 ==

== ENCOUNTER 2024-02-20 10:24 | Outpatient (CLI) | payer MEDICARE ==
--- NOTE | 2024-02-20 14:21 | XRAY Report ---
PROCEDURE: Abdomen 1 V INDICATIONS: ALTERED BOWEL HABITS. TECHNIQUE: One view of the abdomen acquired. COMPARISON: CT abdomen pelvis 11/16/2022. FINDINGS: Surgical changes and devices: Upper abdominal surgical clips. Bowel: Bowel gas pattern is normal. Soft tissues: No suspicious abdominal calcifications. Visualized solid organ contours appear normal in size. Bones: No suspicious bony lesions. IMPRESSION: No acute abdominal pathology. Nonobstructive bowel gas pattern. Reviewed by: Wolf Greenberg MD on 02/20/2024 2:20 PM PDT Approved by: Wolf Greenberg MD on 02/20/2024 2:20 PM PDT Station ID: [id number]
== END 2024-02-20 10:25 | disposition home or self-care (01) ==
LOC: DI.N 10:24 → DI 10:25
DX: R19.4 Change in bowel habit (principal)

== ENCOUNTER 2024-03-20 15:21 | Outpatient (CLI) | payer MEDICARE | END 2024-03-20 15:22 | disposition home or self-care (01) | LOC: RT 15:21 | PROVIDERS: ATTEND Internal Medicine | DX: T88.7XXA Unspecified adverse effect of drug or medicament, initial encounter (principal) | CPT/HCPCS: 93005 ==

== ENCOUNTER 2024-04-16 13:43 | Outpatient (CLI) | payer MEDICARE ==
--- NOTE | 2024-04-16 17:34 | DEXA Report ---
PROCEDURE: Dexa Spine and/or Hip INDICATIONS: POST MENOPAUSAL TECHNIQUE: Dual energy x-ray absorptiometry (DXA) was performed on a [employer]. Regions measur ed are the AP Spine, femoral neck, and if needed forearm. COMPARISON: DEXA on August 17, 2021 FINDINGS: Lumbar Spine: Bone Mineral Density: 1.064 g/cm/cm,T score: -1. There has been no statistically significant change in bone mineral density since the prior study. Left Femoral Neck: Bone Mineral Density: 0.605 g/cm/cm, T score: -3.1. Left Hip: Bone Mineral Density: 0.624 g/cm/cm,T score: -3. There has been no statistically significant change i n bone mineral density since the prior study. (T score greater or equal to -1.0: NORMAL) (T score from -1.1 to -2.4: OSTEOPENIA) (T score less than or equal to -2.5 to: OSTEOPOROSIS) Impression: By WHO criteria, this patient has osteoporosis. No statistical interval change in bone mineral density of the lumbar spine. No statistical interval c hange in bone mineral density of the hip. Patients with diagnosis of osteoporosis or osteopenia should have regular bone mineral density assess ment. For those eligible for Medicare, routine testing is allowed once every 2 years. Testing frequ ency can be increased for patients who have rapidly progressing disease or for those who are receivin g medical therapy to restore bone mass. Reviewed by: Doretha Nance MD on 04/16/2024 5:33 PM PDT Approved by: Doretha Nance MD on 04/16/2024 5:33 PM PDT Station ID: [id number]
== END 2024-04-16 13:44 | disposition home or self-care (01) ==
LOC: DI 13:43
PROVIDERS: ATTEND Family Medicine
DX: M81.0 Age-related osteoporosis without current pathological fracture (principal); Z78.0 Asymptomatic menopausal state

== ENCOUNTER 2024-05-30 10:26 | Outpatient (CLI) | payer MEDICARE | END 2024-05-30 10:27 | disposition home or self-care (01) | LOC: NS 10:26 | PROVIDERS: ATTEND Family Medicine | DX: Z71.3 Dietary counseling and surveillance (principal); Z94.4 Liver transplant status; R54 Age-related physical debility; Z68.1 Body mass index [BMI] 19.9 or less, adult | CPT/HCPCS: 97802 ==